=== PATIENT | male | born 1965 | race African-American/Black ===

== ENCOUNTER 2017-12-17 19:21 | Emergency (ER) | payer BC ==
[2017-12-17] MEDS: IBUPROFEN 600 MG TAB PO (21:32)
== END 2017-12-17 22:48 | disposition home or self-care (01) ==
LOC: FTE 19:21
DX: M54.5 Low back pain (principal); M54.6 Pain in thoracic spine; Z87.891 Personal history of nicotine dependence
CPT/HCPCS: 71045; 72100; 99284-25